=== PATIENT | female | born 1950 | race Caucasian/White ===

== ENCOUNTER 2017-08-14 00:25 | Day surgery (SDC) | payer MEDICARE, BC ==
[~2017-08-14 00:25] MED LIST: CHOL10002 PO; CIPR750 PO; CONESTTC VAG; CORT; Calcitriol0.5 MCG PO; Cytra-2 Oral S473 ML PO; DEXA1L PO; ESOM20; ESOM20 PO; Emla Cream30 GM TP; FENT25TP TOP; FENT50TP TOP; FLUD.1; FLUDROCORTISONE PO; FURO20 PO; Fludrocortison0.1 MG PO; HYDACE5 PO; HYDCOR10 PO; HYDMOR2 PO; HYDMOR4 PO; HYDROXYZINE PO; IMURAN; K-Dur 20 meq T20 MEQ PO; K-Dur20 MEQ PO; KRISTALOSE PO; Kristalose20 GM PO; LACT10SY PO; LACTOSE; LANS30EC; METH5 PO; METO5A PO; MULVITMIND PO; NEXIUM PO; Norco 10-325 T1 EACH PO; ONDA4ODT MM; Omeprazole20 M1 PO; POTA20PAC PO; POTCHL20ER PO; PRED10 PO; PRED5 PO; Rocephin 1g1 G/50 ML IV; SODBIC650 PO; SPIR25 PO; Stool Softener100 MG PO; TRAZ100 PO; TRAZ150T57 PO; Zantac150 MG PO; Zofran Odt4 MG SL; [UNRECOGNIZED DRUG - OTHER] PO
[2017-08-14 09:00] LABS: Creatinine, Blood 1.97 mg/dL (0.40-1.00); Phosphorus, Blood 4.6 mg/dL (2.5-4.9); Potassium, Blood 3.4 mmol/L (3.5-5.5)
[2018-06-04] MEDS ORDERED: SEVEC800 (08:18)
[2018-07-23] MEDS ORDERED: Midodrine HCl2.5 MG PO (08:41)
== END 2017-08-14 08:33 | disposition home or self-care (01) ==
LOC: ATC 00:25
PROVIDERS: Internal Medicine Nephrology
DX: E83.41 Hypermagnesemia (principal); Z87.891 Personal history of nicotine dependence
CPT/HCPCS: 36591; 82374; 82565; 84100; 84132; 84295; J1642

== ENCOUNTER 2017-08-21 00:40 | Day surgery (SDC) | payer MEDICARE, BC ==
[2017-08-21 10:08] LABS: Creatinine, Blood 2.28 mg/dL (0.40-1.00); Phosphorus, Blood 4.2 mg/dL (2.5-4.9); Potassium, Blood 3.4 mmol/L (3.5-5.5)
[2018-06-04] MEDS ORDERED: SEVEC800 (08:18)
[2018-07-23] MEDS ORDERED: Midodrine HCl2.5 MG PO (08:41)
== END 2017-08-21 09:04 | disposition home or self-care (01) ==
LOC: ATC 00:40
PROVIDERS: Internal Medicine Nephrology
DX: E83.41 Hypermagnesemia (principal); Z87.891 Personal history of nicotine dependence
CPT/HCPCS: 36591; 82374; 82565; 84100; 84132; 84295; J1642

== ENCOUNTER 2017-09-04 00:51 | Day surgery (SDC) | payer MEDICARE, BC ==
[2017-09-04 08:53] LABS: Creatinine, Blood 2.13 mg/dL (0.40-1.00); Phosphorus, Blood 3.8 mg/dL (2.5-4.9); Potassium, Blood 3.4 mmol/L (3.5-5.5)
[2018-06-04] MEDS ORDERED: SEVEC800 (08:18)
[2018-07-23] MEDS ORDERED: Midodrine HCl2.5 MG PO (08:41)
== END 2017-09-04 08:10 | disposition home or self-care (01) ==
LOC: ATC 00:51
PROVIDERS: Internal Medicine Nephrology
DX: N18.2 Chronic kidney disease, stage 2 (mild) (principal); E27.8 Other specified disorders of adrenal gland; J01.90 Acute sinusitis, unspecified; Z45.2 Encounter for adjustment and management of vascular access device
CPT/HCPCS: 36591; 82374; 82565; 84100; 84132; 84295; J1642

== ENCOUNTER 2017-09-11 00:29 | Day surgery (SDC) | payer MEDICARE, BC ==
[2017-09-11 08:52] LABS: Creatinine, Blood 2.64 mg/dL (0.40-1.00); Phosphorus, Blood 4.1 mg/dL (2.5-4.9); Potassium, Blood 4.1 mmol/L (3.5-5.5)
[2018-06-04] MEDS ORDERED: SEVEC800 (08:18)
[2018-07-23] MEDS ORDERED: Midodrine HCl2.5 MG PO (08:41)
== END 2017-09-11 08:11 | disposition home or self-care (01) ==
LOC: ATC 00:29
PROVIDERS: Internal Medicine Nephrology
DX: N18.2 Chronic kidney disease, stage 2 (mild) (principal); E27.8 Other specified disorders of adrenal gland; J01.90 Acute sinusitis, unspecified
CPT/HCPCS: 36591; 82374; 82565; 84100; 84132; 84295; J1642

== ENCOUNTER 2017-09-18 00:50 | Day surgery (SDC) | payer MEDICARE, BC ==
[2017-09-18 08:30] LABS: BASOPHILS ABSOLUTE AUTO 0.04 K/mm3 (0.00-0.23); BASOPHILS PERCENT AUTO 0 % (0-2); EOSINOPHILS ABSOLUTE AUTO 0.22 K/mm3 (0.00-0.68); EOSINOPHILS PERCENT AUTO 2 % (0-6); Hematocrit 36.3 % (33.0-51.0); Hemoglobin 11.6 g/dL (11.5-16.0); IMMATURE GRAN ABSOLUTE AUTO 0.03 K/mm3 (0.00-0.10); IMMATURE GRAN PERCENT AUTO 0 % (0-1); LYMPHOCYTES ABSOLUTE AUTO 1.29 K/mm3 (0.84-5.20); LYMPHOCYTES PERCENT AUTO 13 % (21-46); MONOCYTES ABSOLUTE AUTO 0.92 K/mm3 (0.16-1.47); MONOCYTES PERCENT AUTO 10 % (4-13); Mean Corpuscular HGB 27.9 pg (26.0-34.0); Mean Corpuscular Volume 87 fL (80-100); Mean Platelet Volume 10.1 fL (9.1-12.4); NEUTROPHILS ABSOLUTE AUTO 7.22 K/mm3 (1.96-9.15); NEUTROPHILS PERCENT AUTO 74 % (41-73); Platelet Count 225 K/mm3 (150-400); RDW Coefficient Variation 13.3 % (11.7-14.2); RDW Standard Deviation 42.8 fL (35.1-46.3); Red Blood Cell Count 4.16 M/mm3 (3.80-5.20); White Blood Cell Count 9.72 K/mm3 (4.00-11.30)
[2017-09-18 08:55] LABS: Creatinine, Blood 2.18 mg/dL (0.40-1.00); Potassium, Blood 3.6 mmol/L (3.5-5.5)
[2018-06-04] MEDS ORDERED: SEVEC800 (08:18)
[2018-07-23] MEDS ORDERED: Midodrine HCl2.5 MG PO (08:41)
== END 2017-09-18 08:00 | disposition home or self-care (01) ==
LOC: ATC 00:50
PROVIDERS: Internal Medicine; Internal Medicine Nephrology
DX: N18.2 Chronic kidney disease, stage 2 (mild) (principal); E27.8 Other specified disorders of adrenal gland; J01.90 Acute sinusitis, unspecified; Z95.828 Presence of other vascular implants and grafts
CPT/HCPCS: 36591; 82374; 82565; 84100; 84132; 84295; 85025; J1642

== ENCOUNTER 2017-09-25 00:44 | Day surgery (SDC) | payer MEDICARE, BC ==
[2017-09-25 08:40] LABS: Creatinine, Blood 1.89 mg/dL (0.40-1.00); Phosphorus, Blood 3.1 mg/dL (2.5-4.9); Potassium, Blood 3.5 mmol/L (3.5-5.5)
[2018-06-04] MEDS ORDERED: SEVEC800 (08:18)
[2018-07-23] MEDS ORDERED: Midodrine HCl2.5 MG PO (08:41)
== END 2017-09-25 08:25 | disposition home or self-care (01) ==
LOC: ATC 00:44
PROVIDERS: Internal Medicine Nephrology
DX: N18.2 Chronic kidney disease, stage 2 (mild) (principal); E27.8 Other specified disorders of adrenal gland; J01.90 Acute sinusitis, unspecified; Z87.891 Personal history of nicotine dependence
CPT/HCPCS: 36591; 82374; 82565; 84100; 84132; 84295; J1642

== ENCOUNTER 2017-10-02 00:56 | Day surgery (SDC) | payer MEDICARE, BC ==
[2017-10-02 08:54] LABS: Creatinine, Blood 2.02 mg/dL (0.40-1.00); Phosphorus, Blood 3.6 mg/dL (2.5-4.9); Potassium, Blood 3.8 mmol/L (3.5-5.5)
[2018-06-04] MEDS ORDERED: SEVEC800 (08:18)
[2018-07-23] MEDS ORDERED: Midodrine HCl2.5 MG PO (08:41)
== END 2017-10-02 08:15 | disposition home or self-care (01) ==
LOC: ATC 00:56
PROVIDERS: Internal Medicine Nephrology
DX: N18.2 Chronic kidney disease, stage 2 (mild) (principal); E27.8 Other specified disorders of adrenal gland; J01.90 Acute sinusitis, unspecified
CPT/HCPCS: 36591; 82374; 82565; 84100; 84132; 84295; J1642

== ENCOUNTER 2017-10-09 00:40 | Day surgery (SDC) | payer MEDICARE, BC ==
[2017-10-09 09:12] LABS: Creatinine, Blood 2.42 mg/dL (0.40-1.00); Phosphorus, Blood 3.2 mg/dL (2.5-4.9); Potassium, Blood 3.7 mmol/L (3.5-5.5)
[2018-06-04] MEDS ORDERED: SEVEC800 (08:18)
[2018-07-23] MEDS ORDERED: Midodrine HCl2.5 MG PO (08:41)
== END 2017-10-09 08:25 | disposition home or self-care (01) ==
LOC: ATC 00:40
PROVIDERS: Internal Medicine Nephrology
DX: N18.2 Chronic kidney disease, stage 2 (mild) (principal); E27.8 Other specified disorders of adrenal gland; J01.90 Acute sinusitis, unspecified; Z95.828 Presence of other vascular implants and grafts
CPT/HCPCS: 36591; 82374; 82565; 84100; 84132; 84295; J1642

== ENCOUNTER 2017-10-16 00:46 | Day surgery (SDC) | payer MEDICARE, BC ==
[2017-10-16 09:12] LABS: Albumin, Blood 3.9 g/dL (3.4-5.0); Anion Gap 9 mmol/L (6-16); Blood Urea Nitrogen 52 mg/dL (8-24); Bun/Creatinine Ratio 22.8 (12.0-20.0); CO2, Blood 20 mmol/L (21-32); Calcium, Blood 7.9 mg/dL (8.5-10.1); Chloride, Blood 103 mmol/L (98-108); Creatinine, Blood 2.28 mg/dL (0.40-1.00); Glomerular Filtration Rate 23 (60-); Glucose, Blood 96 mg/dL (70-99); Phosphorus, Blood 3.9 mg/dL (2.5-4.9); Potassium, Blood 3.2 mmol/L (3.5-5.5); Sodium, Blood 132 mmol/L (136-145)
[2018-06-04] MEDS ORDERED: SEVEC800 (08:18)
[2018-07-23] MEDS ORDERED: Midodrine HCl2.5 MG PO (08:41)
== END 2017-10-16 08:22 | disposition home or self-care (01) ==
LOC: ATC 00:46
PROVIDERS: Internal Medicine Nephrology
DX: N18.4 Chronic kidney disease, stage 4 (severe) (principal); D63.1 Anemia in chronic kidney disease; D51.8 Other vitamin B12 deficiency anemias; D52.8 Other folate deficiency anemias; D50.9 Iron deficiency anemia, unspecified; Z45.2 Encounter for adjustment and management of vascular access device; E27.8 Other specified disorders of adrenal gland; J01.90 Acute sinusitis, unspecified
CPT/HCPCS: 36591; 80069; 82607; 82746; J1642

== ENCOUNTER 2017-10-23 01:00 | Day surgery (SDC) | payer MEDICARE, BC ==
[2017-10-23 10:09] LABS: Creatinine, Blood 2.52 mg/dL (0.40-1.00); Potassium, Blood 3.7 mmol/L (3.5-5.5)
[2017-10-23 10:15] LABS: Percent Saturation 9.2 % (15.0-50.0)
[2018-06-04] MEDS ORDERED: SEVEC800 (08:18)
[2018-07-23] MEDS ORDERED: Midodrine HCl2.5 MG PO (08:41)
== END 2017-10-23 09:00 | disposition home or self-care (01) ==
LOC: ATC 01:00
PROVIDERS: Internal Medicine Nephrology
DX: N18.2 Chronic kidney disease, stage 2 (mild) (principal); E27.8 Other specified disorders of adrenal gland; J01.90 Acute sinusitis, unspecified; Z87.891 Personal history of nicotine dependence
CPT/HCPCS: 36591; 82374; 82565; 82728; 82746; 83540; 83550; 84100; 84132; 84295; J1642

== ENCOUNTER 2017-10-30 00:16 | Day surgery (SDC) | payer MEDICARE, BC ==
[2017-10-30 08:47] LABS: Creatinine, Blood 1.97 mg/dL (0.40-1.00); Phosphorus, Blood 3.8 mg/dL (2.5-4.9); Potassium, Blood 3.7 mmol/L (3.5-5.5)
[2018-06-04] MEDS ORDERED: SEVEC800 (08:18)
[2018-07-23] MEDS ORDERED: Midodrine HCl2.5 MG PO (08:41)
== END 2017-10-30 08:15 | disposition home or self-care (01) ==
LOC: ATC 00:16
PROVIDERS: Internal Medicine Nephrology
DX: N18.2 Chronic kidney disease, stage 2 (mild) (principal); E27.8 Other specified disorders of adrenal gland; J01.90 Acute sinusitis, unspecified; Z87.891 Personal history of nicotine dependence
CPT/HCPCS: 36591; 82374; 82565; 84100; 84132; 84295; J1642

== ENCOUNTER 2017-11-06 01:10 | Day surgery (SDC) | payer MEDICARE, BC ==
[2017-11-06 08:54] LABS: Creatinine, Blood 2.45 mg/dL (0.40-1.00); Potassium, Blood 3.4 mmol/L (3.5-5.5)
[2018-06-04] MEDS ORDERED: SEVEC800 (08:18)
[2018-07-23] MEDS ORDERED: Midodrine HCl2.5 MG PO (08:41)
== END 2017-11-06 08:23 | disposition home or self-care (01) ==
LOC: ATC 01:10
PROVIDERS: Internal Medicine Nephrology
DX: N18.2 Chronic kidney disease, stage 2 (mild) (principal); E24.8 Other Cushing's syndrome; J01.90 Acute sinusitis, unspecified; Z87.891 Personal history of nicotine dependence
CPT/HCPCS: 36591; 82374; 82565; 84100; 84132; 84295; J1642

== ENCOUNTER 2017-11-13 00:44 | Day surgery (SDC) | payer MEDICARE, BC ==
[2017-11-13] MEDS ORDERED: AMIT10 PO (08:04)
[2017-11-13 08:29] LABS: BASOPHILS ABSOLUTE AUTO 0.04 K/mm3 (0.00-0.23); BASOPHILS PERCENT AUTO 1 % (0-2); EOSINOPHILS ABSOLUTE AUTO 0.16 K/mm3 (0.00-0.68); EOSINOPHILS PERCENT AUTO 2 % (0-6); Hematocrit 45.1 % (33.0-51.0); Hemoglobin 14.2 g/dL (11.5-16.0); IMMATURE GRAN ABSOLUTE AUTO 0.02 K/mm3 (0.00-0.10); IMMATURE GRAN PERCENT AUTO 0 % (0-1); LYMPHOCYTES ABSOLUTE AUTO 1.23 K/mm3 (0.84-5.20); LYMPHOCYTES PERCENT AUTO 18 % (21-46); MONOCYTES ABSOLUTE AUTO 0.61 K/mm3 (0.16-1.47); MONOCYTES PERCENT AUTO 9 % (4-13); Mean Corpuscular HGB Conc 31.5 g/dL (31.5-36.5); Mean Corpuscular Volume 86 fL (80-100); Mean Platelet Volume 10.5 fL (9.1-12.4); NEUTROPHILS ABSOLUTE AUTO 4.95 K/mm3 (1.96-9.15); NEUTROPHILS PERCENT AUTO 71 % (41-73); Platelet Count 224 K/mm3 (150-400); RDW Standard Deviation 40.4 fL (35.1-46.3); Red Blood Cell Count 5.25 M/mm3 (3.80-5.20); White Blood Cell Count 7.01 K/mm3 (4.00-11.30)
[2017-11-13 08:58] LABS: Alanine Aminotransfer (ALT/SGP 34 U/L (12-78); Albumin, Blood 4.5 g/dL (3.4-5.0); Anion Gap 13 mmol/L (6-16); Aspartate Aminotrans (AST/SGOT 33 U/L (12-37); Blood Urea Nitrogen 62 mg/dL (8-24); Bun/Creatinine Ratio 26.8 (12.0-20.0); C-REACTIVE PROTEIN, EXT RANGE <0.290 mg/dL (0.000-0.300); CO2, Blood 20 mmol/L (21-32); Calcium, Blood 9.8 mg/dL (8.5-10.1); Chloride, Blood 98 mmol/L (98-108); Creatinine, Blood 2.31 mg/dL (0.40-1.00); Glomerular Filtration Rate 22 (60-); Glucose, Blood 85 mg/dL (70-99); Phosphorus, Blood 4.7 mg/dL (2.5-4.9); Sodium, Blood 131 mmol/L (136-145)
[2017-11-13 09:00] LABS: Albumin/Globulin Ratio 0.9 (0.8-1.8); Alk Phos 67 U/L (50-136); Bilirubin, Total 0.3 mg/dL (0.1-1.0); Globulin, Blood 4.8 g/dL (2.2-4.0); Total Protein, Blood 9.3 g/dL (6.4-8.2)
[2018-06-04] MEDS ORDERED: SEVEC800 (08:18)
[2018-07-23] MEDS ORDERED: Midodrine HCl2.5 MG PO (08:41)
== END 2017-11-13 08:30 | disposition home or self-care (01) ==
LOC: ATC 00:44
PROVIDERS: Internal Medicine Gastroenterology; Internal Medicine Nephrology
DX: K50.90 Crohn's disease, unspecified, without complications (principal); Z87.891 Personal history of nicotine dependence
CPT/HCPCS: 36591; 80053; 84100; 85025; 86140; J1642

== ENCOUNTER 2017-11-20 00:33 | Day surgery (SDC) | payer MEDICARE, BC ==
[~2017-11-20 00:33] MED LIST changes: +AMIT10 PO
[2017-11-20 08:50] LABS: Creatinine, Blood 1.97 mg/dL (0.40-1.00); Phosphorus, Blood 3.8 mg/dL (2.5-4.9); Potassium, Blood 3.9 mmol/L (3.5-5.5)
[2018-06-04] MEDS ORDERED: SEVEC800 (08:18)
[2018-07-23] MEDS ORDERED: Midodrine HCl2.5 MG PO (08:41)
== END 2017-11-20 08:23 | disposition home or self-care (01) ==
LOC: ATC 00:33
PROVIDERS: Internal Medicine Nephrology
DX: K50.90 Crohn's disease, unspecified, without complications (principal)
CPT/HCPCS: 36591; 82374; 82565; 84100; 84132; 84295; J1642

== ENCOUNTER 2017-11-27 00:17 | Day surgery (SDC) | payer MEDICARE, BC ==
[~2017-11-27 00:17] MED LIST changes: +RANI150 PO; -Zantac150 MG PO
[2017-11-27 09:20] LABS: Creatinine, Blood 2.3 mg/dL (0.40-1.00); Phosphorus, Blood 3.5 mg/dL (2.5-4.9); Potassium, Blood 4.1 mmol/L (3.5-5.5)
== END 2017-11-27 08:48 | disposition home or self-care (01) ==
LOC: ATC 00:17
PROVIDERS: Internal Medicine Nephrology
DX: K50.90 Crohn's disease, unspecified, without complications (principal); Z87.891 Personal history of nicotine dependence
CPT/HCPCS: 36591; 82374; 82565; 84100; 84132; 84295; J1642

== ENCOUNTER 2017-12-04 00:24 | Day surgery (SDC) | payer MEDICARE, BC ==
[2017-12-04 09:27] LABS: Creatinine, Blood 1.97 mg/dL (0.40-1.00); Potassium, Blood 3.4 mmol/L (3.5-5.5)
== END 2017-12-04 08:35 | disposition home or self-care (01) ==
LOC: ATC 00:24
PROVIDERS: Internal Medicine Nephrology
DX: N18.2 Chronic kidney disease, stage 2 (mild) (principal); K21.9 Gastro-esophageal reflux disease without esophagitis; K50.90 Crohn's disease, unspecified, without complications; Z87.891 Personal history of nicotine dependence
CPT/HCPCS: 36591; 82374; 82565; 84100; 84132; 84295; J1642

== ENCOUNTER 2017-12-11 08:00 | Day surgery (SDC) | payer MEDICARE, BC ==
[2017-12-11 08:59] LABS: Creatinine, Blood 2.05 mg/dL (0.40-1.00); Phosphorus, Blood 3.4 mg/dL (2.5-4.9); Potassium, Blood 3.7 mmol/L (3.5-5.5)
== END 2017-12-11 09:00 | disposition home or self-care (01) ==
LOC: ATC 08:00
PROVIDERS: Internal Medicine Nephrology
DX: N18.2 Chronic kidney disease, stage 2 (mild) (principal); K21.9 Gastro-esophageal reflux disease without esophagitis; K50.90 Crohn's disease, unspecified, without complications
CPT/HCPCS: 36591; 82374; 82565; 84100; 84132; 84295; J1642

== ENCOUNTER 2017-12-25 00:23 | Day surgery (SDC) | payer MEDICARE, BC ==
[2017-12-25 08:56] LABS: Creatinine, Blood 2.46 mg/dL (0.40-1.00); Phosphorus, Blood 4.9 mg/dL (2.5-4.9); Potassium, Blood 3.8 mmol/L (3.5-5.5)
== END 2017-12-25 08:28 | disposition home or self-care (01) ==
LOC: ATC 00:23
PROVIDERS: Internal Medicine Nephrology
DX: Z45.2 Encounter for adjustment and management of vascular access device (principal); Z87.891 Personal history of nicotine dependence
CPT/HCPCS: 36591; 82374; 82565; 84100; 84132; 84295; J1642

== ENCOUNTER 2018-01-01 00:12 | Day surgery (SDC) | payer MEDICARE, BC ==
[2018-01-01 08:56] LABS: Creatinine, Blood 2.56 mg/dL (0.40-1.00); Phosphorus, Blood 3.9 mg/dL (2.5-4.9); Potassium, Blood 3.8 mmol/L (3.5-5.5)
== END 2018-01-01 08:23 | disposition home or self-care (01) ==
LOC: ATC 00:12
PROVIDERS: Internal Medicine Nephrology
DX: Z45.2 Encounter for adjustment and management of vascular access device (principal); Z87.891 Personal history of nicotine dependence
CPT/HCPCS: 36591; 82374; 82565; 84100; 84132; 84295; J1642

== ENCOUNTER 2018-01-08 02:10 | Day surgery (SDC) | payer MEDICARE, BC ==
[2018-01-08 09:41] LABS: Creatinine, Blood 2.47 mg/dL (0.40-1.00); Phosphorus, Blood 4.1 mg/dL (2.5-4.9); Potassium, Blood 3.6 mmol/L (3.5-5.5)
== END 2018-01-08 09:21 | disposition home or self-care (01) ==
LOC: ATC 02:10
PROVIDERS: Internal Medicine Nephrology
DX: N18.2 Chronic kidney disease, stage 2 (mild) (principal); K21.9 Gastro-esophageal reflux disease without esophagitis
CPT/HCPCS: 36591; 82374; 82565; 84100; 84132; 84295; J1642

== ENCOUNTER 2018-01-15 00:15 | Day surgery (SDC) | payer MEDICARE, BC ==
[2018-01-15 09:07] LABS: Creatinine, Blood 3.31 mg/dL (0.40-1.00); Phosphorus, Blood 6.1 mg/dL (2.5-4.9); Potassium, Blood 3.5 mmol/L (3.5-5.5)
== END 2018-01-15 22:54 | disposition home or self-care (01) ==
LOC: ATC 00:15
PROVIDERS: Internal Medicine Nephrology
DX: N18.2 Chronic kidney disease, stage 2 (mild) (principal); K21.9 Gastro-esophageal reflux disease without esophagitis
CPT/HCPCS: 36591; 82374; 82565; 84100; 84132; 84295; J1642

== ENCOUNTER 2018-01-22 00:13 | Day surgery (SDC) | payer MEDICARE, BC ==
[2018-01-22 08:46] LABS: Creatinine, Blood 2.85 mg/dL (0.40-1.00); Phosphorus, Blood 3.9 mg/dL (2.5-4.9)
== END 2018-01-22 08:20 | disposition home or self-care (01) ==
LOC: ATC 00:13
PROVIDERS: Internal Medicine Nephrology
DX: E78.00 Pure hypercholesterolemia, unspecified (principal); Z87.891 Personal history of nicotine dependence
CPT/HCPCS: 36591; 82374; 82565; 84100; 84132; 84295; J1642

== ENCOUNTER 2018-01-27 00:09 | Day surgery (SDC) | payer MEDICARE, BC ==
[2018-01-27 09:51] LABS: BASOPHILS ABSOLUTE AUTO 0.02 K/mm3 (0.00-0.23); BASOPHILS PERCENT AUTO 0 % (0-2); EOSINOPHILS ABSOLUTE AUTO 0.15 K/mm3 (0.00-0.68); EOSINOPHILS PERCENT AUTO 3 % (0-6); Hematocrit 37.2 % (33.0-51.0); Hemoglobin 11.7 g/dL (11.5-16.0); IMMATURE GRAN ABSOLUTE AUTO 0.01 K/mm3 (0.00-0.10); IMMATURE GRAN PERCENT AUTO 0 % (0-1); LYMPHOCYTES ABSOLUTE AUTO 0.65 K/mm3 (0.84-5.20); LYMPHOCYTES PERCENT AUTO 13 % (21-46); MONOCYTES ABSOLUTE AUTO 0.55 K/mm3 (0.16-1.47); MONOCYTES PERCENT AUTO 11 % (4-13); Mean Corpuscular HGB 27.4 pg (26.0-34.0); Mean Corpuscular HGB Conc 31.5 g/dL (31.5-36.5); Mean Corpuscular Volume 87 fL (80-100); Mean Platelet Volume 10.8 fL (9.1-12.4); NEUTROPHILS ABSOLUTE AUTO 3.67 K/mm3 (1.96-9.15); NEUTROPHILS PERCENT AUTO 73 % (41-73); Platelet Count 190 K/mm3 (150-400); RDW Standard Deviation 47.8 fL (35.1-46.3); Red Blood Cell Count 4.27 M/mm3 (3.80-5.20); White Blood Cell Count 5.05 K/mm3 (4.00-11.30)
[2018-01-27 10:09] LABS: Creatinine, Blood 3.01 mg/dL (0.40-1.00); Phosphorus, Blood 6.2 mg/dL (2.5-4.9); Potassium, Blood 3.4 mmol/L (3.5-5.5)
== END 2018-01-27 09:15 | disposition home or self-care (01) ==
LOC: ATC 00:09
PROVIDERS: Internal Medicine
DX: N18.4 Chronic kidney disease, stage 4 (severe) (principal); D63.1 Anemia in chronic kidney disease; E88.9 Metabolic disorder, unspecified; E87.8 Other disorders of electrolyte and fluid balance, not elsewhere classified; Z87.891 Personal history of nicotine dependence
CPT/HCPCS: 36591; 82374; 82565; 84100; 84132; 84295; 85025; J1642

== ENCOUNTER 2018-01-29 00:13 | Day surgery (SDC) | payer MEDICARE, BC | END 2018-01-29 23:11 | disposition home or self-care (01) | LOC: ATC 00:13 | DX: N18.4 Chronic kidney disease, stage 4 (severe) (principal); Z87.891 Personal history of nicotine dependence ==

== ENCOUNTER 2018-02-02 00:28 | Day surgery (SDC) | payer MEDICARE, BC | END 2018-02-02 23:05 | disposition home or self-care (01) | LOC: ATC 00:28 | DX: N18.4 Chronic kidney disease, stage 4 (severe) (principal); D63.1 Anemia in chronic kidney disease; Z87.891 Personal history of nicotine dependence | CPT/HCPCS: J1642 ==

== ENCOUNTER 2018-02-12 00:07 | Day surgery (SDC) | payer MEDICARE, BC ==
[2018-02-12 09:20] LABS: Creatinine, Blood 2.57 mg/dL (0.40-1.00); Phosphorus, Blood 4.2 mg/dL (2.5-4.9); Potassium, Blood 3.8 mmol/L (3.5-5.5)
== END 2018-02-12 08:19 | disposition home or self-care (01) ==
LOC: ATC 00:07
PROVIDERS: Internal Medicine Nephrology
DX: N18.4 Chronic kidney disease, stage 4 (severe) (principal); D63.1 Anemia in chronic kidney disease; D75.1 Secondary polycythemia; K50.90 Crohn's disease, unspecified, without complications
CPT/HCPCS: 36591; 82374; 82565; 84100; 84132; 84295; J1642

== ENCOUNTER 2018-02-18 00:10 | Day surgery (SDC) | payer MEDICARE, BC ==
[2018-02-18 10:24] LABS: Creatinine, Blood 2.61 mg/dL (0.40-1.00); Phosphorus, Blood 4.3 mg/dL (2.5-4.9); Potassium, Blood 3.1 mmol/L (3.5-5.5)
== END 2018-02-18 22:42 | disposition home or self-care (01) ==
LOC: ATC 00:10
PROVIDERS: Internal Medicine Nephrology
DX: Z45.2 Encounter for adjustment and management of vascular access device (principal)
CPT/HCPCS: 36591; 36593; 82374; 82565; 84100; 84132; 84295; J1642; J2997

== ENCOUNTER 2018-02-27 13:34 | Day surgery (SDC) | payer MEDICARE, BC ==
[2018-02-27 14:44] LABS: Creatinine, Blood 3.39 mg/dL (0.40-1.00); Potassium, Blood 3.3 mmol/L (3.5-5.5)
== END 2018-02-27 14:20 | disposition home or self-care (01) ==
LOC: ATC 13:34
PROVIDERS: Internal Medicine Nephrology
DX: K50.90 Crohn's disease, unspecified, without complications (principal); E27.1 Primary adrenocortical insufficiency; N18.3 Chronic kidney disease, stage 3 (moderate)
CPT/HCPCS: 82374; 82565; 84100; 84132; 84295; 96523; J1642

== ENCOUNTER 2018-03-12 00:59 | Day surgery (SDC) | payer MEDICARE, BC ==
[2018-03-12 09:34] LABS: Creatinine, Blood 2.66 mg/dL (0.40-1.00); Phosphorus, Blood 5.3 mg/dL (2.5-4.9); Potassium, Blood 3.4 mmol/L (3.5-5.5)
== END 2018-03-12 08:50 | disposition home or self-care (01) ==
LOC: ATC 00:59
PROVIDERS: Internal Medicine Nephrology
DX: T82.898A Other specified complication of vascular prosthetic devices, implants and grafts, initial encounter (principal); K50.90 Crohn's disease, unspecified, without complications; E27.1 Primary adrenocortical insufficiency; K21.9 Gastro-esophageal reflux disease without esophagitis; G62.9 Polyneuropathy, unspecified; N18.2 Chronic kidney disease, stage 2 (mild)
CPT/HCPCS: 36415; 82374; 82565; 84100; 84132; 84295; 96523; J1642

== ENCOUNTER 2018-03-19 00:03 | Day surgery (SDC) | payer MEDICARE, BC ==
[~2018-03-19 00:03] MED LIST changes: -RANI150 PO; +Zantac150 MG PO
[2018-03-19 08:44] LABS: Albumin, Blood 4.9 g/dL (3.4-5.0); Anion Gap 11 mmol/L (6-16); Blood Urea Nitrogen 56 mg/dL (8-24); Bun/Creatinine Ratio 20.4 (12.0-20.0); CO2, Blood 23 mmol/L (21-32); Calcium, Blood 9.9 mg/dL (8.5-10.1); Chloride, Blood 98 mmol/L (98-108); Creatinine, Blood 2.75 mg/dL (0.40-1.00); Glomerular Filtration Rate 18 (60-); Glucose, Blood 97 mg/dL (70-99); Phosphorus, Blood 4.3 mg/dL (2.5-4.9); Potassium, Blood 3.7 mmol/L (3.5-5.5); Sodium, Blood 132 mmol/L (136-145)
== END 2018-03-19 08:09 | disposition home or self-care (01) ==
LOC: ATC 00:03
PROVIDERS: Internal Medicine Nephrology
DX: N18.4 Chronic kidney disease, stage 4 (severe) (principal); D63.1 Anemia in chronic kidney disease
CPT/HCPCS: 80069; 83036; 85018; J1642

== ENCOUNTER 2018-03-19 20:49 | Inpatient (IN) | payer MEDICARE, BC ==
[~2018-03-19] VITALS: Ht 160 cm; Wt 46.4 kg
[2018-03-19 21:32] LABS: Source, Urine Clean Catch
[2018-03-19 21:37] LABS: Bilirubin, Urine Neg (Neg); Blood, Urine Neg (Neg); Glucose Qualitative, Urine Neg (Neg); Ketones, Urine Neg (Neg); Leukocyte Esterase, Urine Neg (Neg); Nitrite, Urine Neg (Neg); Protein, Urine 1+ (Neg); Urobilinogen, Urine NORM (Normal)
[2018-03-19 21:42] LABS: Appearance, Urine Clear (Clear); Color, Urine Yellow (P-Yellow)
[2018-03-19 21:58] LABS: BASOPHILS ABSOLUTE AUTO 0.01 K/mm3 (0.00-0.23); BASOPHILS PERCENT AUTO 0 % (0-2); EOSINOPHILS PERCENT AUTO 0 % (0-6); Hematocrit 32.4 % (33.0-51.0); Hemoglobin 10.6 g/dL (11.5-16.0); IMMATURE GRAN ABSOLUTE AUTO 0.02 K/mm3 (0.00-0.10); IMMATURE GRAN PERCENT AUTO 0 % (0-1); LYMPHOCYTES PERCENT AUTO 5 % (21-46); MONOCYTES ABSOLUTE AUTO 0.44 K/mm3 (0.16-1.47); MONOCYTES PERCENT AUTO 6 % (4-13); Mean Corpuscular HGB 28.9 pg (26.0-34.0); Mean Corpuscular HGB Conc 32.7 g/dL (31.5-36.5); Mean Corpuscular Volume 88 fL (80-100); Mean Platelet Volume 9.9 fL (9.1-12.4); NEUTROPHILS ABSOLUTE AUTO 6.58 K/mm3 (1.96-9.15); NEUTROPHILS PERCENT AUTO 88 % (41-73); Platelet Count 160 K/mm3 (150-400); RDW Coefficient Variation 13.6 % (11.7-14.2); RDW Standard Deviation 43.8 fL (35.1-46.3); Red Blood Cell Count 3.67 M/mm3 (3.80-5.20); White Blood Cell Count 7.45 K/mm3 (4.00-11.30)
[2018-03-19 22:14] LABS: Albumin, Blood 3.5 g/dL (3.4-5.0); Bilirubin, Total 0.2 mg/dL (0.1-1.0); Bun/Creatinine Ratio 21.4 (12.0-20.0); Calcium, Blood 8.2 mg/dL (8.5-10.1); Creatinine, Blood 2.76 mg/dL (0.40-1.00); Globulin, Blood 3.5 g/dL (2.2-4.0); Potassium, Blood 3.5 mmol/L (3.5-5.5)
== END 2018-03-20 17:01 | disposition home or self-care (01) | DRG 389 ==
LOC: ER 20:49 → MEDS 23:42 → ENPENDDIS 03-20 13:49 → MEDS 03-20 17:01
PROVIDERS: Emergency Medicine
DX: K56.600 Partial intestinal obstruction, unspecified as to cause (principal); N18.4 Chronic kidney disease, stage 4 (severe); E27.1 Primary adrenocortical insufficiency; K50.90 Crohn's disease, unspecified, without complications; Z87.891 Personal history of nicotine dependence; I77.0 Arteriovenous fistula, acquired; Z66 Do not resuscitate; I95.9 Hypotension, unspecified; G89.29 Other chronic pain; D63.1 Anemia in chronic kidney disease; Z93.2 Ileostomy status; T40.605A Adverse effect of unspecified narcotics, initial encounter; R33.9 Retention of urine, unspecified
CPT/HCPCS: 36415; 51702; 74176; 80053; 83690; 85025; 96361; 96374; 96375; 99285-25; J1642; J2405; J3010; J7030

== ENCOUNTER 2018-04-09 00:21 | Day surgery (SDC) | payer MEDICARE, BC ==
[2018-04-09 08:27] LABS: Creatinine, Blood 2.4 mg/dL (0.40-1.00); Phosphorus, Blood 3.2 mg/dL (2.5-4.9)
== END 2018-04-09 08:00 | disposition home or self-care (01) ==
LOC: ATC 00:21
PROVIDERS: Internal Medicine
DX: N18.4 Chronic kidney disease, stage 4 (severe) (principal); D63.1 Anemia in chronic kidney disease
CPT/HCPCS: 82374; 82565; 84100; 84132; 84295; 96523; J1642

== ENCOUNTER 2018-04-29 | Day surgery (SDC) | payer MEDICARE, BC ==
[2018-04-29 08:58] LABS: Creatinine, Blood 2.37 mg/dL (0.40-1.00); Phosphorus, Blood 4.1 mg/dL (2.5-4.9); Potassium, Blood 3.9 mmol/L (3.5-5.5)
== END 2018-04-29 08:35 | disposition home or self-care (01) ==
LOC: ATC
PROVIDERS: Internal Medicine Nephrology
DX: N18.4 Chronic kidney disease, stage 4 (severe) (principal); D63.1 Anemia in chronic kidney disease; Z79.891 Long term (current) use of opiate analgesic; Z79.899 Other long term (current) drug therapy; Z45.2 Encounter for adjustment and management of vascular access device
CPT/HCPCS: 82374; 82565; 84100; 84132; 84295; 96523; J1642

== ENCOUNTER 2018-05-07 00:31 | Day surgery (SDC) | payer MEDICARE, BC | END 2018-05-07 22:53 | disposition home or self-care (01) | LOC: ATC 00:31 | DX: Z45.2 Encounter for adjustment and management of vascular access device (principal) ==

== ENCOUNTER 2018-05-08 00:18 | Day surgery (SDC) | payer MEDICARE, BC ==
[2018-05-08 12:35] LABS: Phosphorus, Blood 3.3 mg/dL (2.5-4.9); Potassium, Blood 4.2 mmol/L (3.5-5.5)
== END 2018-05-08 11:55 | disposition home or self-care (01) ==
LOC: ATC 00:18
PROVIDERS: Internal Medicine Nephrology
DX: N13.9 Obstructive and reflux uropathy, unspecified (principal)
CPT/HCPCS: 82310; 82435; 84100; 84132; 84295; 96523; J1642

== ENCOUNTER 2018-05-14 07:32 | Day surgery (SDC) | payer MEDICARE, BC ==
[2018-05-14 08:35] LABS: Creatinine, Blood 2.33 mg/dL (0.40-1.00); Phosphorus, Blood 3.8 mg/dL (2.5-4.9)
== END 2018-05-14 08:08 | disposition home or self-care (01) ==
LOC: ATC 07:32
PROVIDERS: Internal Medicine Nephrology
DX: K50.90 Crohn's disease, unspecified, without complications (principal); N18.2 Chronic kidney disease, stage 2 (mild); Z79.899 Other long term (current) drug therapy
CPT/HCPCS: 82374; 82565; 84100; 84132; 84295; 96523; J1642

== ENCOUNTER 2018-05-21 00:35 | Day surgery (SDC) | payer MEDICARE, BC ==
[2018-05-21 08:36] LABS: Creatinine, Blood 2.34 mg/dL (0.40-1.00); Phosphorus, Blood 2.8 mg/dL (2.5-4.9); Potassium, Blood 4.6 mmol/L (3.5-5.5)
== END 2018-05-21 08:15 | disposition home or self-care (01) ==
LOC: ATC 00:35
PROVIDERS: Internal Medicine
DX: N13.9 Obstructive and reflux uropathy, unspecified (principal)
CPT/HCPCS: 36415; 82374; 82565; 84100; 84132; 84295; 96523; J1642

== ENCOUNTER 2018-05-28 00:19 | Day surgery (SDC) | payer MEDICARE, BC ==
[2018-05-28 09:01] LABS: Creatinine, Blood 7.13 mg/dL (0.40-1.00); Phosphorus, Blood 9.7 mg/dL (2.5-4.9); Potassium, Blood 3.1 mmol/L (3.5-5.5)
== END 2018-05-28 08:18 | disposition home or self-care (01) ==
LOC: ATC 00:19
PROVIDERS: Internal Medicine Nephrology
DX: N13.9 Obstructive and reflux uropathy, unspecified (principal)
CPT/HCPCS: 36415; 82374; 82565; 84100; 84132; 84295; 96523; J1642

== ENCOUNTER 2018-09-17 00:58 | Day surgery (SDC) | payer MEDICARE, BC ==
[~2018-09-17 00:58] MED LIST changes: +Midodrine HCl2.5 MG PO; +SEVEC800
== END 2018-09-17 07:50 | disposition home or self-care (01) ==
LOC: ATC 00:58
DX: N13.9 Obstructive and reflux uropathy, unspecified (principal); N18.6 End stage renal disease
CPT/HCPCS: 96523; J1642

== ENCOUNTER 2018-10-15 00:22 | Day surgery (SDC) | payer MEDICARE, BC | END 2018-10-15 07:51 | disposition home or self-care (01) | LOC: ATC 00:22 | DX: N13.9 Obstructive and reflux uropathy, unspecified (principal); K50.90 Crohn's disease, unspecified, without complications | CPT/HCPCS: 96523; J1642 ==

== ENCOUNTER 2019-02-25 00:21 | Day surgery (SDC) | payer MEDICARE, BC | END 2019-02-25 15:12 | disposition home or self-care (01) | LOC: ATC 00:21 | DX: Z45.2 Encounter for adjustment and management of vascular access device (principal); N18.3 Chronic kidney disease, stage 3 (moderate); F32.9 Major depressive disorder, single episode, unspecified; K21.0 Gastro-esophageal reflux disease with esophagitis; Z79.899 Other long term (current) drug therapy | CPT/HCPCS: 36591; J1642 ==

== ENCOUNTER 2019-03-25 02:21 | Day surgery (SDC) | payer MEDICARE, BC | END 2019-03-25 07:46 | disposition home or self-care (01) | LOC: ATC 02:21 | DX: Z45.2 Encounter for adjustment and management of vascular access device (principal); F32.9 Major depressive disorder, single episode, unspecified; K21.0 Gastro-esophageal reflux disease with esophagitis; Z79.899 Other long term (current) drug therapy | CPT/HCPCS: 96523; J1642 ==

== ENCOUNTER 2019-04-22 02:03 | Day surgery (SDC) | payer MEDICARE, BC ==
[2019-04-22 08:49] LABS: BASOPHILS ABSOLUTE AUTO 0.03 K/mm3 (0.00-0.23); BASOPHILS PERCENT AUTO 1 % (0-2); EOSINOPHILS ABSOLUTE AUTO 0.17 K/mm3 (0.00-0.68); EOSINOPHILS PERCENT AUTO 4 % (0-6); Hemoglobin 11.4 g/dL (11.5-16.0); IMMATURE GRAN ABSOLUTE AUTO 0.01 K/mm3 (0.00-0.10); IMMATURE GRAN PERCENT AUTO 0 % (0-1); LYMPHOCYTES ABSOLUTE AUTO 0.93 K/mm3 (0.84-5.20); LYMPHOCYTES PERCENT AUTO 21 % (21-46); MONOCYTES ABSOLUTE AUTO 0.54 K/mm3 (0.16-1.47); MONOCYTES PERCENT AUTO 12 % (4-13); Mean Corpuscular HGB 30.6 pg (26.0-34.0); Mean Corpuscular HGB Conc 32.6 g/dL (31.5-36.5); Mean Corpuscular Volume 94 fL (80-100); Mean Platelet Volume 10.9 fL (9.1-12.4); NEUTROPHILS ABSOLUTE AUTO 2.83 K/mm3 (1.96-9.15); NEUTROPHILS PERCENT AUTO 63 % (41-73); Platelet Count 115 K/mm3 (150-400); RDW Coefficient Variation 13.3 % (11.7-14.2); RDW Standard Deviation 46.2 fL (35.1-46.3); Red Blood Cell Count 3.73 M/mm3 (3.80-5.20); White Blood Cell Count 4.51 K/mm3 (4.00-11.30)
[2019-04-22 09:09] LABS: Percent Saturation 97.1 % (15.0-50.0)
[2019-04-22 09:10] LABS: Alanine Aminotransfer (ALT/SGP 24 U/L (12-78); Albumin/Globulin Ratio 1.1 (0.8-1.8); Alk Phos 76 U/L (50-136); Anion Gap 12 mmol/L (6-16); Aspartate Aminotrans (AST/SGOT 35 U/L (12-37); Bilirubin, Direct 0.1 mg/dL (0.0-0.3); Bilirubin, Indirect 0.3 mg/dL (0.1-0.7); Bilirubin, Total 0.4 mg/dL (0.1-1.0); Blood Urea Nitrogen 56 mg/dL (8-24); Bun/Creatinine Ratio 9.1 (12.0-20.0); C-REACTIVE PROTEIN, EXT RANGE <0.290 mg/dL (0.000-0.300); CHOL/HDL RATIO 1.6; CO2, Blood 26 mmol/L (21-32); Chloride, Blood 97 mmol/L (98-108); Cholesterol 175 mg/dL (50-200); Creatinine, Blood 6.16 mg/dL (0.40-1.00); Globulin, Blood 3.8 g/dL (2.2-4.0); Glomerular Filtration Rate 7 (60-); Glucose, Blood 89 mg/dL (70-99); HDL Cholesterol 110 mg/dL (>39); LDL/HDL RATIO 0.4; Low Density Lipoprotein Chol 43 mg/dL (0-110); Magnesium, Blood 2.6 mg/dL (1.6-2.4); Potassium, Blood 3.5 mmol/L (3.5-5.5); Sodium, Blood 135 mmol/L (136-145); Total Protein, Blood 7.8 g/dL (6.4-8.2); Triglycerides 112 mg/dL (30-160); Very Low Density Lipoprot Chol 22 mg/dL (6-32)
== END 2019-04-22 08:15 | disposition home or self-care (01) ==
LOC: ATC 02:03 → LAB 02:03 → ATC 07:30
PROVIDERS: Internal Medicine; Internal Medicine Gastroenterology
DX: K50.90 Crohn's disease, unspecified, without complications (principal); E78.5 Hyperlipidemia, unspecified; I10 Essential (primary) hypertension; R53.81 Other malaise
CPT/HCPCS: 80053; 80061; 80076; 82248; 82306; 82607; 82728; 83540; 83550; 83735; 84443; 84590; 84630; 85025; 86140; 96523; J1642

== ENCOUNTER 2019-05-25 00:09 | Day surgery (SDC) | payer MEDICARE, BC | END 2019-05-25 08:47 | disposition home or self-care (01) | LOC: ATC 00:09 | DX: K50.90 Crohn's disease, unspecified, without complications (principal); I12.9 Hypertensive chronic kidney disease with stage 1 through stage 4 chronic kidney disease, or unspecified chronic kidney disease; N18.2 Chronic kidney disease, stage 2 (mild); E78.5 Hyperlipidemia, unspecified; R53.81 Other malaise; E27.8 Other specified disorders of adrenal gland; Z79.899 Other long term (current) drug therapy; Z79.52 Long term (current) use of systemic steroids | CPT/HCPCS: 96523; J1642 ==

== ENCOUNTER 2019-08-05 01:18 | Day surgery (SDC) | payer MEDICARE, BC | END 2019-08-05 08:40 | disposition home or self-care (01) | LOC: ATC 01:18 | DX: Z45.2 Encounter for adjustment and management of vascular access device (principal); N18.6 End stage renal disease; M81.0 Age-related osteoporosis without current pathological fracture; K21.9 Gastro-esophageal reflux disease without esophagitis; F32.9 Major depressive disorder, single episode, unspecified; G62.9 Polyneuropathy, unspecified; E27.1 Primary adrenocortical insufficiency; Z88.5 Allergy status to narcotic agent; Z91.013 Allergy to seafood; Z79.52 Long term (current) use of systemic steroids; Z79.899 Other long term (current) drug therapy; Z99.2 Dependence on renal dialysis | CPT/HCPCS: 96523; J1642 ==

== ENCOUNTER 2019-10-05 07:56 | Inpatient (IN) | payer MEDICARE, BC ==
[~2019-10-05] VITALS: Ht 162.6 cm; Wt 41.5 kg
[2019-10-05] MEDS ORDERED: VELPHORO500 MG PO (09:04)
[2019-10-05] MEDS ORDERED: Desyrel150 MG PO (09:04)
[2019-10-05] MEDS ORDERED: OXYC10ER PO (09:05)
[2019-10-05] MEDS ORDERED: HYDMOR4 PO (09:05)
[2019-10-05] MEDS ORDERED: ONDA4 PO (09:05)
[2019-10-05] MEDS ORDERED: KRISTALOSE20 GM PO (09:06)
[2019-10-05] MEDS ORDERED: Promethazine12.5 M1 PO (09:06)
[2019-10-05 09:11] LABS: BASOPHILS ABSOLUTE AUTO 0.05 K/mm3 (0.00-0.23); BASOPHILS PERCENT AUTO 0 % (0-2); EOSINOPHILS ABSOLUTE AUTO 0.05 K/mm3 (0.00-0.68); EOSINOPHILS PERCENT AUTO 0 % (0-6); Hematocrit 41.3 % (33.0-51.0); Hemoglobin 13.2 g/dL (11.5-16.0); IMMATURE GRAN ABSOLUTE AUTO 0.04 K/mm3 (0.00-0.10); IMMATURE GRAN PERCENT AUTO 0 % (0-1); LYMPHOCYTES ABSOLUTE AUTO 0.92 K/mm3 (0.84-5.20); LYMPHOCYTES PERCENT AUTO 7 % (21-46); MONOCYTES ABSOLUTE AUTO 0.86 K/mm3 (0.16-1.47); MONOCYTES PERCENT AUTO 7 % (4-13); Mean Corpuscular HGB 30.6 pg (26.0-34.0); Mean Corpuscular Volume 96 fL (80-100); Mean Platelet Volume 10.2 fL (9.1-12.4); NEUTROPHILS ABSOLUTE AUTO 10.99 K/mm3 (1.96-9.15); NEUTROPHILS PERCENT AUTO 85 % (41-73); Platelet Count 151 K/mm3 (150-400); RDW Coefficient Variation 13.7 % (11.7-14.2); RDW Standard Deviation 48.8 fL (35.1-46.3); Red Blood Cell Count 4.32 M/mm3 (3.80-5.20); White Blood Cell Count 12.91 K/mm3 (4.00-11.30)
[2019-10-05 09:34] LABS: Source, Urine Catheter
[2019-10-05 09:38] LABS: Troponin I <0.015 ng/mL (0.000-0.040)
[2019-10-05 09:39] LABS: Alanine Aminotransfer (ALT/SGP 21 U/L (12-78); Albumin, Blood 4.1 g/dL (3.4-5.0); Albumin/Globulin Ratio 0.9 (0.8-1.8); Alk Phos 144 U/L (50-136); Anion Gap 10 mmol/L (6-16); Aspartate Aminotrans (AST/SGOT 36 U/L (12-37); Bilirubin, Total 0.5 mg/dL (0.1-1.0); Blood Urea Nitrogen 60 mg/dL (8-24); Bun/Creatinine Ratio 5.8 (12.0-20.0); CO2, Blood 36 mmol/L (21-32); Calcium, Blood 11.7 mg/dL (8.5-10.1); Chloride, Blood 83 mmol/L (98-108); Globulin, Blood 4.8 g/dL (2.2-4.0); Glomerular Filtration Rate 4 (60-); Glucose, Blood 100 mg/dL (70-99); Sodium, Blood 129 mmol/L (136-145); Total Protein, Blood 8.9 g/dL (6.4-8.2)
[2019-10-05 10:00] LABS: Appearance, Urine Clear (Clear); Bilirubin, Urine Neg (Neg); Blood, Urine 2+ (Neg); Color, Urine Yellow (P-Yellow); Glucose Qualitative, Urine Neg (Neg); Ketones, Urine Neg (Neg); Leukocyte Esterase, Urine 2+ (Neg); Nitrite, Urine Neg (Neg); Protein, Urine 3+ (Neg); Urobilinogen, Urine NORM (Normal)
[2019-10-05 10:37] LABS: Bacteria Mod /hpf; Squamous Epithelial Cells Few /hpf (Few)
[2019-10-05] MEDS ORDERED: PANTOPRAZOLE SO40 M2 PO (12:40)
--- NOTE | 2019-10-05 15:15 | NUR ---
Patient arrived via gurney and was a slide transfer to ICU 16 and she stated still very weak and dizzy. She is on RA and sats 90-96%. BP systolic 90's, HR 70-80's. She asked for urinal so that she could empty Ill[place] by herself. She vomited just prior to arrival. She has un-accessed mediport to chest. She has 29ga IV to RFA dressing intact and site WNL's and has been flushed and SL'd. She calls appropriately.
--- NOTE | 2019-10-05 17:45 | NUR ---
patient has c/o chromnic rectal pain and medicated per MAR and also for nausea. She shortly fell asleep and was hypotensive until awakened her to go to Dialysis. Dr Lozada came by and consulted and wanted her to do 2 hour and she agreed. Just dropped her off at Dialysis via ICU 16 bed.
--- NOTE | 2019-10-05 18:50 | NUR ---
Marifer held until after dialysis. Called by dialysis and they were delayed as patient stated that she is medicated with Bedadryl and zofran prior r/t itching and nausea. Went to dialysis and medicated as per request and MAR.
--- NOTE | 2019-10-05 21:00 | NUR ---
[place] of Care: Care assumed at 1900hr. Patient in dialysis center at shift change. This nurse transported patient back to ICU rm 16 at 2030hr. Patient alert and oriented x4. Denies dyspnea/SOB, O2-96% on RA. C/o pain to rt lower ABD and rectum (chronic), routine scheduled medications and x1 prn Dilaudid given with good effect noted. All Vs stable other than BP shows systolic pressures from 60's-80's, patient also states her systolic BP is normally in the 80's and she is asymptomatic. Call placed to Dr. Lozada, received orders for PO midodrine 5mg TID. New IV placed to lt forearm, d/c'd IV to rt forearm per C/o severe pain with saline flush. Ileostomy appliance to rt lower quadrant patent and intact, patient able to manage care of appliance and collection bag. Patient states to make very little urine at baseline and denies need to void at this time. Call light in reach, makes needs known. Will continue to monitor.
[2019-10-06 03:59] LABS: BASOPHILS ABSOLUTE AUTO 0.02 K/mm3 (0.00-0.23); BASOPHILS PERCENT AUTO 0 % (0-2); EOSINOPHILS PERCENT AUTO 0 % (0-6); Hematocrit 33.7 % (33.0-51.0); Hemoglobin 10.8 g/dL (11.5-16.0); IMMATURE GRAN ABSOLUTE AUTO 0.03 K/mm3 (0.00-0.10); IMMATURE GRAN PERCENT AUTO 0 % (0-1); LYMPHOCYTES ABSOLUTE AUTO 0.66 K/mm3 (0.84-5.20); LYMPHOCYTES PERCENT AUTO 6 % (21-46); MONOCYTES ABSOLUTE AUTO 0.35 K/mm3 (0.16-1.47); MONOCYTES PERCENT AUTO 3 % (4-13); Mean Corpuscular HGB 30.6 pg (26.0-34.0); Mean Corpuscular Volume 96 fL (80-100); Mean Platelet Volume 10.5 fL (9.1-12.4); NEUTROPHILS ABSOLUTE AUTO 10.02 K/mm3 (1.96-9.15); NEUTROPHILS PERCENT AUTO 90 % (41-73); Platelet Count 169 K/mm3 (150-400); RDW Coefficient Variation 13.6 % (11.7-14.2); RDW Standard Deviation 47.7 fL (35.1-46.3); Red Blood Cell Count 3.53 M/mm3 (3.80-5.20); White Blood Cell Count 11.08 K/mm3 (4.00-11.30)
[2019-10-06 04:27] LABS: Magnesium, Blood 2.1 mg/dL (1.6-2.4)
[2019-10-06 04:51] LABS: Albumin, Blood 3.1 g/dL (3.4-5.0); Albumin/Globulin Ratio 0.9 (0.8-1.8); Bilirubin, Total 0.4 mg/dL (0.1-1.0); Bun/Creatinine Ratio 7.2 (12.0-20.0); Creatinine, Blood 6.82 mg/dL (0.40-1.00); Globulin, Blood 3.6 g/dL (2.2-4.0); Phosphorus, Blood 2.8 mg/dL (2.5-4.9); Total Protein, Blood 6.7 g/dL (6.4-8.2)
--- NOTE | 2019-10-06 07:00 | NUR ---
BEDSIDE REPORT WITH ASHVIN GARZA.
--- NOTE | 2019-10-06 07:35 | NUR ---
Shift Summary: Patient slept well throughout shift. Continues to c/o pain to rectum (chronic) effectively managed with prn Dilaudid x2 doses. Continues to deny dyspnea/SOB, O2-95-98% on RA. HR stable, BP continued to shows systolic pressures 60's-90's. Patient remains asymptomatic with low BP's, Dr. Lozada also aware, and ordered Midodrine TID early in shift. Peripheral IV to lt arm remains patent and intact. Call light in reach, makes needs known. Bedside report held as patient was sleeping at shift change. Report given to day shift RN.
--- NOTE | 2019-10-06 07:50 | NUR ---
DR ROCKWELL AT BEDSIDE. PLAN TO MOVE PT TO MED WITH NO TELE. VERBAL ORDER TO DC IV DILAUDID AND SWITCH TO PTS HOME DOSE OF PO DILADID RECEIVED. PT MEDICATED PER EMAR.
--- NOTE | 2019-10-06 09:00 | NUR ---
REPORT TO MED KAYLA. [facility] STAFF AT BEDSIDE FOR ECHO. PT TO BE MOVED TO 207.
--- NOTE | 2019-10-06 09:15 | NUR ---
PT REQUESTING SACHIN FOR PASTORAL CARE TO VISIT. THIS RN CONTACTED SACHIN AND HE STATES HE WILL COME SEE PT. PT UPDATED.
--- NOTE | 2019-10-06 09:41 | NUR ---
PT STILL HYPOTENSIVE AT 65/44, PT ALERT AND ORIENTED AND DENIES SYMPTOMS. CHARGE NURSE AWARE. PT TO STAY IN ICU BED.
--- NOTE | 2019-10-06 10:00 | NUR ---
Echocardiogram completed.
--- NOTE | 2019-10-06 11:22 | NUR ---
PT CHANGED ILEOSTOMY DEVICE. 100ML BROWNISH STOOL EMPTIED. PT IN CLEAN GOWN. WATER PROVIDED.
--- NOTE | 2019-10-06 12:37 | NUR ---
Spiritual care visit conducted. Patient is lying in bed and alert. Patient immediately shares about her DNR status and how difficult reaching that decision was. Patient talks about the current status of her disease and the halfway pain she has been in and how frail she has become. Patient gets tearful in talking about how this decision has affected her , David. We talk about God, , dying and the afterlife. Patient has absolute peace about her decision and asks for an Advance Directive to further communicate her wishes. We laugh together and cry some and end with prayer and statements of gratitude for all she has and the love that surrounds her today. I will continue to remain available to patient and family.
--- NOTE | 2019-10-06 13:22 | NUR ---
PT EMPTYING ILEOSTOMY. REFUSED OFFERED HELP.
--- NOTE | 2019-10-06 15:50 | NUR ---
REPORT TO RACHEL GARZA ON MEDICAL FLOOR.
--- NOTE | 2019-10-06 16:21 | NUR ---
PT UPDATED ON NEW ROOM NUMBER. ROOM NOT READY. PT THINGS GATHERED FOR MOVE.
--- NOTE | 2019-10-06 17:19 | NUR ---
PT TO MEDICAL FLOOR.
--- NOTE | 2019-10-06 17:36 | NUR ---
Shift Summary A/Ox4, pleasant since on this floor. Pt transferred from ICU to Med 341 @ 1720, arrived via bed. Received report from KAYLA Basilio. Pt settled to room, setup dinner. Call light near, bed in lowest position. Will continue to monitor.
[2019-10-07 05:25] LABS: Hematocrit 33.6 % (33.0-51.0); Hemoglobin 10.6 g/dL (11.5-16.0)
[2019-10-07 06:07] LABS: Albumin, Blood 3.1 g/dL (3.4-5.0); Anion Gap 13 mmol/L (6-16); Blood Urea Nitrogen 86 mg/dL (8-24); CO2, Blood 24 mmol/L (21-32); Calcium, Blood 8.1 mg/dL (8.5-10.1); Chloride, Blood 94 mmol/L (98-108); Glucose, Blood 89 mg/dL (70-99); Phosphorus, Blood 2.9 mg/dL (2.5-4.9); Potassium, Blood 3.9 mmol/L (3.5-5.5); Sodium, Blood 131 mmol/L (136-145)
[2019-10-07 06:09] LABS: Bun/Creatinine Ratio 9.1 (12.0-20.0); Creatinine, Blood 9.44 mg/dL (0.40-1.00); Glomerular Filtration Rate 4 (60-)
--- NOTE | 2019-10-07 06:34 | NUR ---
SHIFT SUMMARY PT IS A 69 Y/O FEMALE, ADMITTED FOR SEPSIS. SHE IS A&O X 4, AND CURRENTLY ON BEDREST. PT HAS AN ILEOSTOMY, AND IS A CURRENT DIALYSIS PT. BP WAS LOW, 80-90S SYSTOLICALLY. ALL OTHER VITALS STABLE. PT C/O CONSTANT ABD PAIN AT AN 8-10/10, AND FREQUENTLY REQUESTED PAIN MEDICATION. SHE WAS MEDICATED WITH SCHEDULED DILAUDID AND OXYCONTIN, AND ONCE WITH PRN TYLENOL. PT'S CREATININE WAS CRITICALLY ANNELIESE THIS AM AT 9.44. DR VIRGEN WAS NOTIFIED. MIDODRINE WAS INCREASED, BUT NO OTHER ORDERS AT THIS TIME. NO OTHER ACUTE CHANGES IN PT CONDITION NOTED. WILL CONTINUE TO MONITOR AND TREAT PER EMAR UNTIL HAND OFF TO DAY SHIFT RN.
[2019-10-07] MEDS ORDERED: Fludrocortison0.1 MG PO (14:45)
[2019-10-07] MEDS ORDERED: LACT PO (14:46)
[2019-10-07] MEDS ORDERED: CIPR500 PO (14:47)
[2019-10-07] MEDS ORDERED: HYDCOR10 PO (14:48)
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
--- NOTE | 2019-10-07 15:40 | NUR ---
Discharge Summary A/Ox4. Patient had dialysis this morning. Discharging to home. Reviewed discharge materials with patient, no questions at this time. Meds faxed to [facility]. Escorted by [employer] TESTER via w/c, transporting by personal vehicle. IV removed, WNL. Personal belongings were bagged and sent home with patient. Pt independently dressed and up in room.
== END 2019-10-07 15:26 | disposition home or self-care (01) | DRG 871 ==
LOC: ER 07:56 → ICUW 12:02 → MEDS 10-06 17:29
PROVIDERS: Emergency Medicine; Internal Medicine Nephrology; Nurse Practitioner Acute Care; ADMIT Internal Medicine
DX: A41.9 Sepsis, unspecified organism (principal); N18.6 End stage renal disease; N39.0 Urinary tract infection, site not specified; E27.1 Primary adrenocortical insufficiency; E87.1 Hypo-osmolality and hyponatremia; G89.4 Chronic pain syndrome; K21.9 Gastro-esophageal reflux disease without esophagitis; D63.1 Anemia in chronic kidney disease; G47.9 Sleep disorder, unspecified; E83.51 Hypocalcemia; E83.39 Other disorders of phosphorus metabolism; K59.09 Other constipation; I95.9 Hypotension, unspecified; E86.9 Volume depletion, unspecified; I73.9 Peripheral vascular disease, unspecified; M81.0 Age-related osteoporosis without current pathological fracture; M19.90 Unspecified osteoarthritis, unspecified site; Z66 Do not resuscitate; Z93.2 Ileostomy status; Z99.2 Dependence on renal dialysis; Z91.14 Patient's other noncompliance with medication regimen
CPT/HCPCS: 36415; 71046; 80053; 80069; 81001; 83605; 83735; 83880; 84100; 84484; 85014; 85018; 85025; 87040; 87086; 93005; 93010; 93306; 96361; 96365; 96375; 99285-25; A9270; J0696; J1170; J1200; J1644; J1720; J2405; J2550; J7030; P9612

== ENCOUNTER 2019-10-28 00:57 | Day surgery (SDC) | payer MEDICARE, BC ==
[~2019-10-28 00:57] MED LIST changes: +CIPR500 PO; +Desyrel150 MG PO; +KRISTALOSE20 GM PO; +LACT PO; +ONDA4 PO; +OXYC10ER PO; +PANTOPRAZOLE SO40 M2 PO; +Promethazine12.5 M1 PO; +VELPHORO500 MG PO
[2019-11-03 19:10] LABS: 6-ACETYLMORPHINE Negative (.); CODEINE Negative (.); DIHYDROCODEINE Negative (.); HYDROCODONE Negative (.); HYDROMORPHONE Negative (.); MORPHINE Negative (.); OPIATE CONFIRMATION Negative (.); OXYCODONE 19.8 ng/mL (.); OXYCODONES CONFIRMATION Positive (.); OXYMORPHONE Negative (.)
== END 2019-10-28 09:32 | disposition home or self-care (01) ==
LOC: ATC 00:57
PROVIDERS: Physician Assistant
DX: N18.6 End stage renal disease (principal)
CPT/HCPCS: 36415; 96523; J1642

== ENCOUNTER 2019-11-12 17:51 | Inpatient (IN) | payer MEDICARE, BC ==
[~2019-11-12] VITALS: Ht 160 cm; Wt 43.1 kg
[2019-11-12 19:01] LABS: BASOPHILS ABSOLUTE AUTO 0.03 K/mm3 (0.00-0.23); BASOPHILS PERCENT AUTO 0 % (0-2); EOSINOPHILS PERCENT AUTO 0 % (0-6); Hematocrit 31.3 % (33.0-51.0); Hemoglobin 10.7 g/dL (11.5-16.0); IMMATURE GRAN ABSOLUTE AUTO 0.09 K/mm3 (0.00-0.10); IMMATURE GRAN PERCENT AUTO 1 % (0-1); LYMPHOCYTES ABSOLUTE AUTO 1.27 K/mm3 (0.84-5.20); LYMPHOCYTES PERCENT AUTO 10 % (21-46); MONOCYTES ABSOLUTE AUTO 1.21 K/mm3 (0.16-1.47); MONOCYTES PERCENT AUTO 10 % (4-13); Mean Corpuscular HGB 30.3 pg (26.0-34.0); Mean Corpuscular HGB Conc 34.2 g/dL (31.5-36.5); Mean Corpuscular Volume 89 fL (80-100); Mean Platelet Volume 9.8 fL (9.1-12.4); NEUTROPHILS ABSOLUTE AUTO 10.17 K/mm3 (1.96-9.15); NEUTROPHILS PERCENT AUTO 80 % (41-73); Platelet Count 234 K/mm3 (150-400); RDW Coefficient Variation 14.4 % (11.7-14.2); Red Blood Cell Count 3.53 M/mm3 (3.80-5.20); White Blood Cell Count 12.77 K/mm3 (4.00-11.30)
[2019-11-12 19:22] LABS: Albumin, Blood 4.9 g/dL (3.4-5.0); Albumin/Globulin Ratio 1.1 (0.8-1.8); Bilirubin, Total 0.5 mg/dL (0.1-1.0); Bun/Creatinine Ratio 8.4 (12.0-20.0); Calcium, Blood 9.4 mg/dL (8.5-10.1); Creatinine, Blood 7.04 mg/dL (0.40-1.00); Globulin, Blood 4.4 g/dL (2.2-4.0); Potassium, Blood 2.4 mmol/L (3.5-5.5); Total Protein, Blood 9.3 g/dL (6.4-8.2)
[2019-11-12 21:59] LABS: Magnesium, Blood 2.5 mg/dL (1.6-2.4)
[2019-11-12] MEDS ORDERED: PROC5 PO (22:59)
--- NOTE | 2019-11-13 05:46 | NUR ---
SHIFT SUMMARY NEW ADMIT THIS SHIFT. AAOX4. ABD DISCOMFORT CONTROLLED WITH 1MG IV DILAUDID Q2H. NAUSEA CONTROLLED WITH 4MG IV ZOFRAN + 12.5MG PHENERGAN IV ALTERNATING. NO EMESIS. ILEOSTOMY WITH LARGE AMOUNT OF OUTPUT UPON ADMISSION TO UNIT. BT HYPER X4 QUADS. IVF PER ORDERS. MULTIPLE K RIDERS ORDERED, 2ND K RIDER INFUSING AT HALF RATE PER PT'S REQUEST AFTER PRIMARY IV INFILTRATED FROM ED. PT RESTING INTERMITTENTLY. VIRGEN CONSULT TO BE CALLED THIS AM. AWAITING COMPLETION OF INFUSION TO OBTAIN MORNING LABS. PT RESTING AT THIS TIME, PAM, WITH CALL LIGHT IN REACH.
[2019-11-13 08:41] LABS: BASOPHILS ABSOLUTE AUTO 0.02 K/mm3 (0.00-0.23); BASOPHILS PERCENT AUTO 0 % (0-2); EOSINOPHILS PERCENT AUTO 0 % (0-6); Hematocrit 24.3 % (33.0-51.0); IMMATURE GRAN ABSOLUTE AUTO 0.05 K/mm3 (0.00-0.10); IMMATURE GRAN PERCENT AUTO 1 % (0-1); LYMPHOCYTES ABSOLUTE AUTO 0.65 K/mm3 (0.84-5.20); LYMPHOCYTES PERCENT AUTO 8 % (21-46); MONOCYTES ABSOLUTE AUTO 0.48 K/mm3 (0.16-1.47); MONOCYTES PERCENT AUTO 6 % (4-13); Mean Corpuscular HGB Conc 32.9 g/dL (31.5-36.5); Mean Corpuscular Volume 91 fL (80-100); Mean Platelet Volume 9.6 fL (9.1-12.4); NEUTROPHILS ABSOLUTE AUTO 7.39 K/mm3 (1.96-9.15); NEUTROPHILS PERCENT AUTO 86 % (41-73); Platelet Count 166 K/mm3 (150-400); RDW Coefficient Variation 14.6 % (11.7-14.2); RDW Standard Deviation 47.3 fL (35.1-46.3); Red Blood Cell Count 2.67 M/mm3 (3.80-5.20); White Blood Cell Count 8.59 K/mm3 (4.00-11.30)
[2019-11-13 08:47] LABS: Hematocrit 24.7 % (33.0-51.0); Hemoglobin 8.2 g/dL (11.5-16.0)
[2019-11-13 08:59] LABS: Albumin, Blood 3.6 g/dL (3.4-5.0); Anion Gap 12 mmol/L (6-16); Blood Urea Nitrogen 64 mg/dL (8-24); Bun/Creatinine Ratio 8.5 (12.0-20.0); CO2, Blood 23 mmol/L (21-32); Chloride, Blood 94 mmol/L (98-108); Creatinine, Blood 7.53 mg/dL (0.40-1.00); Glomerular Filtration Rate 6 (60-); Glucose, Blood 100 mg/dL (70-99); Magnesium, Blood 2.3 mg/dL (1.6-2.4); Phosphorus, Blood 4.5 mg/dL (2.5-4.9); Potassium, Blood 3.4 mmol/L (3.5-5.5); Sodium, Blood 129 mmol/L (136-145)
[2019-11-13 09:03] LABS: Bun/Creatinine Ratio 8.4 (12.0-20.0); Calcium, Blood 7.9 mg/dL (8.5-10.1); Creatinine, Blood 7.59 mg/dL (0.40-1.00); Potassium, Blood 3.4 mmol/L (3.5-5.5)
--- NOTE | 2019-11-13 10:40 | NUR ---
TELE BOX RETURNED TO PCU.
--- NOTE | 2019-11-13 16:04 | NUR ---
SHIFT SUMMARY NO ACUTE CHANGES THIS SHIFT. ILEOSTOMY CONT TO PUT OUT LIQ GREEN DRAINAGE. PT RECEIVING 1 MG IV DILAUDID FOR PAIN. PT FRANCY CLEAR LIQ DIET. ADVANCING TO A REGULAR RENAL DIET FOR DINNER. PT INDEP IN ROOM. CLINIMIX INFUSING PER DR. VIRGEN ORDERS. LABS ORDERED FOR THE A.M. CALL LIGHT WITHIN REACH.
--- NOTE | 2019-11-14 04:36 | NUR ---
SHIFT SUMMARY PT RESTED WELL T/O NIGHT. AAOX4. DISCOMFORT CONTROLLED WITH 1MG IV DILAUDID X3 THIS SHIFT, NO NAUSEA/EMESIS. PT EMPTIES OWN ILEOSTOMY WHICH CONTINUES TO PRODUCE LARGE AMOUNTS OF LIQUID + SOME FORMED STOOL. NO URINE OUTPUT R/T HX ESRD + DIALYSIS. IVF PER ORDERS. AWAITING LAB RESULTS THIS AM. NO ACUTE CHANGES OVER NIGHT. PT INDEPENDENT IN ROOM + USES CALL LIGHT FOR ASSISTANCE.
[2019-11-14 05:10] LABS: Hematocrit 23.8 % (33.0-51.0); Hemoglobin 7.8 g/dL (11.5-16.0)
[2019-11-14 05:36] LABS: Magnesium, Blood 2.4 mg/dL (1.6-2.4)
[2019-11-14 05:57] LABS: Albumin, Blood 3.1 g/dL (3.4-5.0); Anion Gap 17 mmol/L (6-16); Blood Urea Nitrogen 92 mg/dL (8-24); Bun/Creatinine Ratio 10.6 (12.0-20.0); CO2, Blood 18 mmol/L (21-32); Calcium, Blood 7.6 mg/dL (8.5-10.1); Chloride, Blood 95 mmol/L (98-108); Creatinine, Blood 8.68 mg/dL (0.40-1.00); Glomerular Filtration Rate 5 (60-); Glucose, Blood 117 mg/dL (70-99); Phosphorus, Blood 4.3 mg/dL (2.5-4.9); Sodium, Blood 130 mmol/L (136-145)
--- NOTE | 2019-11-14 09:10 | NUR ---
PT TO DIALYSIS
--- NOTE | 2019-11-14 13:59 | NUR ---
3420- Discharge instructions reviewed with patient. Patient verbalizes understanding. Copy given to patient to take home. Discharged via wheelchair to private car for ride home.
== END 2019-11-14 13:50 | disposition home or self-care (01) | DRG 388 ==
LOC: ER 17:51 → SURS 17:52
PROVIDERS: Internal Medicine Nephrology; Nurse Practitioner Acute Care; Physician Assistant; ADMIT Internal Medicine
PROC: 5A1D70Z Performance of Urinary Filtration, Intermittent, Less than 6 Hours Per Day (ICD-10-PCS; principal; 2019-11-14)
PROC: 30233N1 Transfusion of Nonautologous Red Blood Cells into Peripheral Vein, Percutaneous Approach (ICD-10-PCS; 2019-11-14)
DX: K56.609 Unspecified intestinal obstruction, unspecified as to partial versus complete obstruction (principal); N18.6 End stage renal disease; E27.1 Primary adrenocortical insufficiency; E87.1 Hypo-osmolality and hyponatremia; E87.6 Hypokalemia; D63.1 Anemia in chronic kidney disease; E86.9 Volume depletion, unspecified; Z93.2 Ileostomy status; G89.4 Chronic pain syndrome; I73.9 Peripheral vascular disease, unspecified; M81.0 Age-related osteoporosis without current pathological fracture; M19.90 Unspecified osteoarthritis, unspecified site; Z66 Do not resuscitate; Z87.891 Personal history of nicotine dependence
CPT/HCPCS: 36415; 36430; 74176; 80048; 80053; 80069; 83605; 83690; 83735; 85014; 85018; 85025; 86850; 86900; 86901; 86923; 96365; 96366; 96372; 96375; 96376; 99285-25; G0378; J0881; J1170; J1200; J1720; J2405; J2550; J3480; J7030; J7131; P9016

== ENCOUNTER 2019-12-19 17:10 | Emergency (ER) | payer MEDICARE, BC ==
[~2019-12-19] VITALS: Ht 165.1 cm; Wt 42.6 kg
[~2019-12-19 17:10] MED LIST changes: -Desyrel150 MG PO; -OXYC10ER PO; +PROC5 PO; -Promethazine12.5 M1 PO
[2019-12-19] MEDS ORDERED: Prednisone2.5 MG PO (18:01)
[2019-12-19] MEDS ORDERED: Fludrocortison0.1 MG PO (18:02)
[2019-12-19] MEDS ORDERED: ZOFRAN8 MG PO (18:03)
[2019-12-19] MEDS ORDERED: HYDMOR4 PO (18:04)
[2019-12-19] MEDS ORDERED: Megestrol400 MG/10 PO (18:08)
[2019-12-19] MEDS ORDERED: Desyrel150 MG PO (18:09)
[2019-12-19] MEDS ORDERED: Promethazine12.5 M1 PO (18:09)
[2019-12-19] MEDS ORDERED: Decadron 4 mg4 MG/M1 IM (18:15)
[2019-12-19] MEDS ORDERED: OXYC10ER PO (18:30)
[2019-12-19 18:43] LABS: BASOPHILS ABSOLUTE AUTO 0.02 K/mm3 (0.00-0.23); BASOPHILS PERCENT AUTO 0 % (0-2); EOSINOPHILS PERCENT AUTO 0 % (0-6); Hematocrit 31.8 % (33.0-51.0); Hemoglobin 10.3 g/dL (11.5-16.0); IMMATURE GRAN ABSOLUTE AUTO 0.04 K/mm3 (0.00-0.10); IMMATURE GRAN PERCENT AUTO 0 % (0-1); LYMPHOCYTES ABSOLUTE AUTO 0.42 K/mm3 (0.84-5.20); LYMPHOCYTES PERCENT AUTO 4 % (21-46); MONOCYTES ABSOLUTE AUTO 1.33 K/mm3 (0.16-1.47); MONOCYTES PERCENT AUTO 12 % (4-13); Mean Corpuscular HGB 30.1 pg (26.0-34.0); Mean Corpuscular HGB Conc 32.4 g/dL (31.5-36.5); Mean Corpuscular Volume 93 fL (80-100); Mean Platelet Volume 9.9 fL (9.1-12.4); NEUTROPHILS ABSOLUTE AUTO 9.78 K/mm3 (1.96-9.15); NEUTROPHILS PERCENT AUTO 84 % (41-73); Platelet Count 169 K/mm3 (150-400); RDW Coefficient Variation 14.5 % (11.7-14.2); RDW Standard Deviation 49.4 fL (35.1-46.3); Red Blood Cell Count 3.42 M/mm3 (3.80-5.20); White Blood Cell Count 11.59 K/mm3 (4.00-11.30)
[2019-12-19 19:03] LABS: Albumin, Blood 3.7 g/dL (3.4-5.0); Bilirubin, Total 0.4 mg/dL (0.1-1.0); Bun/Creatinine Ratio 4.7 (12.0-20.0); Calcium, Blood 8.9 mg/dL (8.5-10.1); Creatinine, Blood 4.89 mg/dL (0.40-1.00); Globulin, Blood 3.6 g/dL (2.2-4.0); Potassium, Blood 3.5 mmol/L (3.5-5.5); Total Protein, Blood 7.3 g/dL (6.4-8.2)
== END 2019-12-19 19:46 | disposition home or self-care (01) ==
LOC: ER 17:10
PROVIDERS: Emergency Medicine
DX: N18.6 End stage renal disease (principal); D50.9 Iron deficiency anemia, unspecified; E27.1 Primary adrenocortical insufficiency; I73.9 Peripheral vascular disease, unspecified; Z99.2 Dependence on renal dialysis; Z91.013 Allergy to seafood; Z88.5 Allergy status to narcotic agent; Z79.899 Other long term (current) drug therapy; M81.0 Age-related osteoporosis without current pathological fracture; M19.90 Unspecified osteoarthritis, unspecified site; Z87.891 Personal history of nicotine dependence
CPT/HCPCS: 36415; 71045; 80053; 83735; 85025; 93005; 93010; 99284-25

== ENCOUNTER 2020-01-06 00:13 | Day surgery (SDC) | payer MEDICARE, BC ==
[~2020-01-06 00:13] MED LIST changes: +Decadron 4 mg4 MG/M1 IM; +Desyrel150 MG PO; +Megestrol400 MG/10 PO; +OXYC10ER PO; +Prednisone2.5 MG PO; +Promethazine12.5 M1 PO; +ZOFRAN8 MG PO
== END 2020-01-06 14:49 | disposition home or self-care (01) ==
LOC: ATC 00:13
DX: E27.9 Disorder of adrenal gland, unspecified (principal); N18.6 End stage renal disease; Z99.2 Dependence on renal dialysis
CPT/HCPCS: J1642

== ENCOUNTER 2020-02-03 12:35 | Inpatient (IN) | payer MEDICARE, BC ==
[~2020-02-03] VITALS: Ht 167.6 cm; Wt 45.4 kg
[~2020-02-03 12:35] MED LIST changes: -Prednisone2.5 MG PO
[2020-02-03 13:08] LABS: BASOPHILS ABSOLUTE AUTO 0.02 K/mm3 (0.00-0.23); BASOPHILS PERCENT AUTO 0 % (0-2); EOSINOPHILS ABSOLUTE AUTO 0.02 K/mm3 (0.00-0.68); EOSINOPHILS PERCENT AUTO 0 % (0-6); Hematocrit 38.8 % (33.0-51.0); Hemoglobin 12.4 g/dL (11.5-16.0); IMMATURE GRAN ABSOLUTE AUTO 0.05 K/mm3 (0.00-0.10); IMMATURE GRAN PERCENT AUTO 1 % (0-1); LYMPHOCYTES ABSOLUTE AUTO 1.69 K/mm3 (0.84-5.20); LYMPHOCYTES PERCENT AUTO 19 % (21-46); MONOCYTES ABSOLUTE AUTO 0.71 K/mm3 (0.16-1.47); MONOCYTES PERCENT AUTO 8 % (4-13); Mean Corpuscular HGB 31.6 pg (26.0-34.0); Mean Corpuscular Volume 99 fL (80-100); Mean Platelet Volume 9.9 fL (9.1-12.4); NEUTROPHILS ABSOLUTE AUTO 6.53 K/mm3 (1.96-9.15); NEUTROPHILS PERCENT AUTO 72 % (41-73); Platelet Count 205 K/mm3 (150-400); RDW Coefficient Variation 14.8 % (11.7-14.2); RDW Standard Deviation 54.5 fL (35.1-46.3); Red Blood Cell Count 3.92 M/mm3 (3.80-5.20); White Blood Cell Count 9.02 K/mm3 (4.00-11.30)
[2020-02-03 13:35] LABS: Ethanol (Alcohol), Blood, Med <3 mg/dL
[2020-02-03 13:54] LABS: Alanine Aminotransfer (ALT/SGP 37 U/L (12-78); Albumin, Blood 4.2 g/dL (3.4-5.0); Alk Phos 68 U/L (50-136); Anion Gap 18 mmol/L (6-16); Aspartate Aminotrans (AST/SGOT 35 U/L (12-37); Bilirubin, Total 0.6 mg/dL (0.1-1.0); Blood Urea Nitrogen 66 mg/dL (8-24); Bun/Creatinine Ratio 5.4 (12.0-20.0); CO2, Blood 33 mmol/L (21-32); Calcium, Blood 12.7 mg/dL (8.5-10.1); Chloride, Blood 82 mmol/L (98-108); Glomerular Filtration Rate 3 (60-); Glucose, Blood 116 mg/dL (70-99); Potassium, Blood 3.7 mmol/L (3.5-5.5); Sodium, Blood 133 mmol/L (136-145); Total Protein, Blood 8.2 g/dL (6.4-8.2)
[2020-02-03 14:34] LABS: International Normalized Ratio 0.98; Prothrombin Time Results 10.5 Sec (9.7-11.5)
--- NOTE | 2020-02-03 18:37 | NUR ---
ASSUMED CARE AT 1815 FROM ER. NON VERBAL WITH QUESTIONS AT THIS TIME. MOANS AND RESPONDS TO PAINFUL STIMULI. LAYING ON LEFT SIDE, WARM BLANKETS GIVEN. US TO ROOM UPON ARRIVAL TO PCU FOR CAROTID US.
--- NOTE | 2020-02-03 20:26 | NUR ---
RONALD CALLED PHARMACIST REGARDING PREVIOUS KEPPRA ADMINISTRATION AT 1615. ASKED IF THE NEXT SCHEDULED DOSE AT 2100 COULD BE SAFELT ADMINISTERED. PHARMACIST STATES THIS NEXT ADMINISTRATION TIME IS "OKAY TO GIVE".
--- NOTE | 2020-02-04 00:20 | NUR ---
MID SHIFT PT CONTINUES TO BE LETHARGIC. RESPONDS TO PAINFUL STIMULI, SOMETIMES VERBAL STIMULI. PT ROLLING IN BED. MOANS OCCASIONALLY. KEPPRA INFUSED. COLOSTOMY EMPTIED. ATTENDS CHANGED. UPDATED ON CONDITIPON. REPORT GIVEN AND CARE RELINQUISHED TO TO CAROLYN BACH.
--- NOTE | 2020-02-04 01:10 | NUR ---
PATIENT AWAKES TO VERBAL STIMULUS. WHEN EXPLAINED WHAT WAS DOING SHE ACKNOWLEDGED. WILL CONTINUE TO MONITOR
--- NOTE | 2020-02-04 02:26 | NUR ---
PATIENT RESTLESS, YELLING HELP, UNABLE TO VOICE CONCERNS, ASK IF SHE NEED BATHROOM SAID YES. ATTEMPTED TO GET TO BESIDE COMMODE, PATIENT STOOD WITH LITTLE ASSIST BUT RETURN TO BED. BLADDER SCAN PERFORMED ON 50 CC NOTED. WHEN ASK OF PAIN SHE SAID ALL OVER. MEDICATED WITH 1 MG DILADID IV.
[2020-02-04 04:17] LABS: BASOPHILS ABSOLUTE AUTO 0.02 K/mm3 (0.00-0.23); BASOPHILS PERCENT AUTO 0 % (0-2); EOSINOPHILS PERCENT AUTO 0 % (0-6); Hematocrit 31.8 % (33.0-51.0); Hemoglobin 10.6 g/dL (11.5-16.0); IMMATURE GRAN ABSOLUTE AUTO 0.02 K/mm3 (0.00-0.10); IMMATURE GRAN PERCENT AUTO 0 % (0-1); LYMPHOCYTES ABSOLUTE AUTO 0.44 K/mm3 (0.84-5.20); LYMPHOCYTES PERCENT AUTO 5 % (21-46); MONOCYTES ABSOLUTE AUTO 0.24 K/mm3 (0.16-1.47); MONOCYTES PERCENT AUTO 3 % (4-13); Mean Corpuscular HGB 31.3 pg (26.0-34.0); Mean Corpuscular HGB Conc 33.3 g/dL (31.5-36.5); Mean Platelet Volume 9.7 fL (9.1-12.4); NEUTROPHILS ABSOLUTE AUTO 7.75 K/mm3 (1.96-9.15); NEUTROPHILS PERCENT AUTO 92 % (41-73); Platelet Count 190 K/mm3 (150-400); RDW Coefficient Variation 14.8 % (11.7-14.2); RDW Standard Deviation 50.9 fL (35.1-46.3); Red Blood Cell Count 3.39 M/mm3 (3.80-5.20); White Blood Cell Count 8.47 K/mm3 (4.00-11.30)
[2020-02-04 04:30] LABS: Mean Corpuscular Volume 94 fL (80-100)
[2020-02-04 04:42] LABS: Magnesium, Blood 2.8 mg/dL (1.6-2.4)
[2020-02-04 04:50] LABS: Thyroid Stimulating Hormone 1.12 uIU/mL (0.360-4.800)
[2020-02-04 04:51] LABS: Cortisol, AM > 61.0 ug/dL (6.7-22.6)
[2020-02-04 04:54] LABS: Albumin, Blood 3.7 g/dL (3.4-5.0); Bilirubin, Total 0.7 mg/dL (0.1-1.0); Calcium, Blood 11.4 mg/dL (8.5-10.1); Creatinine, Blood 13.2 mg/dL (0.40-1.00); Globulin, Blood 3.6 g/dL (2.2-4.0); Phosphorus, Blood 5.2 mg/dL (2.5-4.9); Potassium, Blood 4.1 mmol/L (3.5-5.5); Total Protein, Blood 7.3 g/dL (6.4-8.2)
[2020-02-04 04:59] LABS: Parathyroid Hormone, Intact 16 pg/mL (12-88)
[2020-02-04 06:28] LABS: U Amphetamine Screen Not Detected; U Barbituate Screen Not Detected; U Benzodiazapine Screen Not Detected; U Buprenorphine Screen Not Detected; U Cannabinoids Screen Not Detected; U Cocaine Screen Not Detected; U Methadone Screen Not Detected; U Methamphetamine Screen Not Detected; U Opiates Screen DETECTED; U Oxycodone Screen Not Detected; U Phencyclidine Screen Not Detected; U Propoxyphene Screen Not Detected
--- NOTE | 2020-02-04 08:13 | NUR ---
[place] [address], REPORT FROM KAYLA LEON. MOVING AND YELLING FROM BED, ATTEMPTING TO STAND. ASSISTED TO BED WITH ANALYSIS INTERNSHIP. UNABLE TO REDIRECT, PULLING AT LINES. SPOKE WITH DR. VANN. TELEPHONE ORDER GIVEN FOR SULMA VEST FOR PT SAFTEY. PLACED IN VEST WITH TAB ALARM. ALERT TO SELF AT THIS TIME. MOVES ALL FOUR EXTREMETIES WITHOUT DIFFICULTY, VISIBLE TREMOR TO ARMS BILATERALLY. REPOSITIONED TO RECLINER WITH PILLOWS FOR COMFORT. REVIEWED PLAN OF CARE FOR DAY WITH SPOUSE VIA TELEPHONE, WILL CONTINUE TO MONITOR.
--- NOTE | 2020-02-04 17:55 | NUR ---
SHIFT SUMMARY: DECREASED AGITATION DURING SHIFT TODAY, REMAINS CONFUSED AND ORIENTED TO SELF AND PLACE AT THIS TIME. SULMA VEST REMAINS INPLACE TO DUE CONFUSION AND IMPULSIVENESS. DIALYSIS COMPLETE TODAY, INTERMITANT SLEEPING IN AFTERNOON AFTER DIALYSIS. CLINIMEX INFUSING PER ORDERS. VSS, COLOSTOMY BAG BURPED AND EMPTIED DURING SHIFT. PT WAS ABLE TO SPEAK BRIEFLY ON PHONE TODAY WITH SPOUSE, CONFUSED BUT TALKING IN SHORT SENTENCES, ASKS HIM HOW HE IS AND TELLS HIM SHE LOVES HIM. WILL CONTINUE TO MONITOR UNTIL SHIFT CHANGE.
[2020-02-05 03:53] LABS: Hematocrit 32.7 % (33.0-51.0); Hemoglobin 10.2 g/dL (11.5-16.0)
[2020-02-05 04:25] LABS: Albumin, Blood 3.4 g/dL (3.4-5.0); Anion Gap 9 mmol/L (6-16); Blood Urea Nitrogen 66 mg/dL (8-24); Bun/Creatinine Ratio 7.8 (12.0-20.0); CO2, Blood 31 mmol/L (21-32); Calcium, Blood 9.5 mg/dL (8.5-10.1); Chloride, Blood 94 mmol/L (98-108); Creatinine, Blood 8.43 mg/dL (0.40-1.00); Glomerular Filtration Rate 5 (60-); Glucose, Blood 107 mg/dL (70-99); Phosphorus, Blood 6.5 mg/dL (2.5-4.9); Potassium, Blood 4.6 mmol/L (3.5-5.5); Sodium, Blood 134 mmol/L (136-145)
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
--- NOTE | 2020-02-05 09:52 | NUR ---
ASSUMED CARE AT 0700, REPORT FROM KAYLA LIRA. A/A/OX4, SITTING IN BED IN HIGH FOWLERS, ASKS FOR BREAKFAST. STATES FEELS MUCH BETTER TODAY. SPOKE WITH PROVIDER SULMA QUINTERO DC'D AND DIET ORDERS PLACED. DR. VIRGEN TO BEDSIDE, CLINIMEX DC'D BY DR. VIRGEN. BREAKFAST TRAY GIVEN, CALLED PT AND HAD ORIENTED CONVERSATION WITH VIA PHONE. WILL CONTINUE TO MONITOR.
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
--- NOTE | 2020-02-05 22:04 | NUR ---
PT DENIED DISCOMFORT WHEN ASKED. REQUESTED AND RECEIVED SLEEP MED OF TRAZADONE PER MD ORDERS. NO NOTED ACUTE DISTRESS, CALL LIGHT IN REACH. WILL MONITOR
--- NOTE | 2020-02-06 04:33 | NUR ---
SHIFT SUMMARY HAS BEEN RESTING QUIETLY WITH NO NOTED INTERRUPTIONS WHEN ASSESSED WITH ROUNDING. NO APPARENT S/S OF ACUTE DISTRESS. CALL LIGHT IN REACH. WILL CONTINUE TO MONITOR
[2020-02-06 05:37] LABS: Hematocrit 29.8 % (33.0-51.0); Hemoglobin 9.5 g/dL (11.5-16.0)
[2020-02-06 06:08] LABS: Albumin, Blood 3.1 g/dL (3.4-5.0); Anion Gap 13 mmol/L (6-16); Blood Urea Nitrogen 106 mg/dL (8-24); Bun/Creatinine Ratio 9.9 (12.0-20.0); CO2, Blood 28 mmol/L (21-32); Calcium, Blood 8.7 mg/dL (8.5-10.1); Chloride, Blood 95 mmol/L (98-108); Glomerular Filtration Rate 4 (60-); Glucose, Blood 86 mg/dL (70-99); Potassium, Blood 4.3 mmol/L (3.5-5.5); Sodium, Blood 136 mmol/L (136-145)
--- NOTE | 2020-02-06 06:27 | NUR ---
LAB CALLED WITH [facility] 10.7, WHICH WAS UP FROM YESTERDAY OF JUST OVER 8. PT IN PAIN, HAVING HAD OXY EARLIER AROUND 0500 AM, BUT PAIN STILL 7:10. ORDERED FENTANYL IV X 1. PT SCHEDULED FOR DIALYSIS TODAY
[2020-02-06] MEDS ORDERED: ROXICODONE5 MG PO (11:57)
[2020-02-06] MEDS ORDERED: HYDCOR10 PO (12:03)
[2020-02-06] MEDS ORDERED: LACT10SY PO (12:07)
[2020-02-06] MEDS ORDERED: PYRI100 PO (12:07)
--- NOTE | 2020-02-06 12:49 | NUR ---
DISCHARGED: Reviewed stay, medications, dc orders, followup appointments, and plans for going home, no iv, rm air assisted to wc when arrived at er tent, escorted to exit by staff with belongings, a+o
[2020-02-07 15:07] LABS: A/G RATIO 1.4 (0.7-1.7); ALBUMIN 3.8 g/dL (2.9-4.4); ALPHA-1-GLOBULIN 0.3 g/dL (0.0-0.4); ALPHA-2-GLOBULIN 0.9 g/dL (0.4-1.0); BETA GLOBULIN 0.8 g/dL (0.7-1.3); GAMMA GLOBULIN 0.8 g/dL (0.4-1.8); GLOBULIN, TOTAL 2.8 g/dL (2.2-3.9); IMMUNOGLOBULIN A, QN, SERUM 266 mg/dL (87-352); IMMUNOGLOBULIN G, QN, SERUM 636 mg/dL (586-1602); IMMUNOGLOBULIN M, QN, SERUM 71 mg/dL (26-217); M-SPIKE Not Observed g/dL (Not Observed); PROTEIN, TOTAL, SERUM 6.6 g/dL (6.0-8.5)
== END 2020-02-06 12:46 | disposition home or self-care (01) | DRG 100 ==
LOC: ER 12:35 → PCU 15:32 → MEDS 02-05 12:00
PROVIDERS: Internal Medicine Nephrology; Nurse Practitioner Acute Care; Physician Assistant; ADMIT Internal Medicine
PROC: 5A1D70Z Performance of Urinary Filtration, Intermittent, Less than 6 Hours Per Day (ICD-10-PCS; principal; 2020-02-04)
DX: G40.409 Other generalized epilepsy and epileptic syndromes, not intractable, without status epilepticus (principal); N18.6 End stage renal disease; E27.1 Primary adrenocortical insufficiency; K50.90 Crohn's disease, unspecified, without complications; N25.81 Secondary hyperparathyroidism of renal origin; E87.1 Hypo-osmolality and hyponatremia; E83.52 Hypercalcemia; Z99.2 Dependence on renal dialysis; G89.4 Chronic pain syndrome; W18.30XA Fall on same level, unspecified, initial encounter; Y93.9 Activity, unspecified; M81.0 Age-related osteoporosis without current pathological fracture; I73.9 Peripheral vascular disease, unspecified; D50.9 Iron deficiency anemia, unspecified; Z90.49 Acquired absence of other specified parts of digestive tract; Z87.891 Personal history of nicotine dependence; E87.70 Fluid overload, unspecified; E83.39 Other disorders of phosphorus metabolism; E88.09 Other disorders of plasma-protein metabolism, not elsewhere classified
CPT/HCPCS: 36415; 70450; 71045; 80053; 80069; 82397; 82533; 82550; 82784; 83605; 83735; 83970; 84100; 84146; 84165; 84443; 85014; 85018; 85025; 85610; 86334; 86335; 93005; 93010; 93880; 96365; 96372-59; 96375; 97116; 97161; 97166; 99285-25; A9270-GY; C9113; G0480; J1170; J1644; J1720; J1953; J2060; J3010

== ENCOUNTER 2020-02-14 07:55 | Day surgery (SDC) | payer MEDICARE, BC ==
[~2020-02-14] VITALS: Ht 160 cm; Wt 42.7 kg
[~2020-02-14 07:55] MED LIST changes: +CONEST.625 PO; +Dilaudid 2 mg Ta2 MG PO; +PYRI100 PO; +RENAL-VITE TAB0.8 MG PO; +ROXICODONE5 MG PO; +VELPHORO500 M1 PO
[2020-02-14] MEDS ORDERED: OXYC10ER PO (12:39)
--- NOTE | 2020-02-14 14:49 | NUR ---
DISCHARGE PT REMAINED A&OX3 AND DENIED ANY PAIN DURING RECOVERY. R KATIE SITE REMAINED LDL-DZBU-RGE HEMATOMA. MEDIPORT ACCESS DC'D WITH CANULA IN TACT AND FLUSHED WITH HEPARIN SOLUTION. DISCHARGE PAPERWORK GONE OVER WITH PT. PT VERBALLY STATED THE UDERSTANDING OF THE DISCHARGE EDUCATION AND DENIED ANY QUESTIONS AT THIS TIME. PT WHEELED OUT BY TRANSPORTER 1.
== END 2020-02-14 14:00 | disposition home or self-care (01) ==
LOC: MHTC 07:55
DX: I70.222 Atherosclerosis of native arteries of extremities with rest pain, left leg (principal); Z88.5 Allergy status to narcotic agent; Z91.013 Allergy to seafood
CPT/HCPCS: 36247; 75625; 75716; 75774; 99152; C1760; C1769; C1887; C1894; J1642; J1644; J2250; J3010; J7030; Q9967; U0002